=== PATIENT | male | born 1995 | race Caucasian/White ===

== ENCOUNTER 2016-10-16 17:46 | Emergency (ER) | payer SELFPAY ==
[~2016-10-16] VITALS: Ht 170.2 cm; Wt 65.0 kg
[~2016-10-16 17:46] MED LIST: Z.0.NO CURRENT MEDS
[2016-10-16 17:48] VITALS: BP 131/83; PULSE 108; RESP 15; TEMP 97.8; O2SAT 99
[2016-10-16] MEDS ORDERED: ACETAMINOPHEN/HYDROcodone 325 MG/5 MG TAB PO ONE (19:15)
[2016-10-16] MEDS ORDERED: IBUP800T23 PO (19:17)
[2016-10-16] MEDS ORDERED: HYDR-3533 PO (19:17)
--- NOTE | 2016-10-16 19:22 | PD ---
HPI Chief Complaint: Injury Time Seen by Provider: 19:17 Travel History International Travel<30 days: No Contact w/Intl Traveler<30days: No Traveled to known affect area: No History of Present Illness HPI 21-year-old white male presents to emergency department with a complaint of left knee pain after injury last evening. He states that his left knee gave out causing him to fall down injuring his knee. He states that he does not recall striking it. He states that he had gradual swelling and pain. Decreased ability to bear weight. He states pain is moderate to severe. Worse with attempting to weight-bear or move his leg. He denies any other injuries. No injury to his head, neck or back. No numbness, tingling or weakness. There is some relief with elevation and rest. PFSH Past Medical History Medical History: Denies Significant Hx Diminished Hearing: No Immunizations Current: Yes Tetanus Vaccination: < 5 Years Influenza Vaccination: No Past Surgical History Surgical History: No Previous Surgery Social History Alcohol Use: Yes (4 daily ) Tobacco Use: No (1/2 ppd ) Substance Use: Yes ([facility] ) Allergies-Medications (Allergen,Severity, Reaction): Coded Allergies: No Known Allergies (Verified , 10/16/16) Reported Meds & Prescriptions Reported Meds & Active Scripts Active No Active Prescriptions or Reported Medications Review of Systems Except as stated in HPI: all other systems reviewed are Neg Physical Exam Narrative GENERAL: Well-developed, well-nourished in no apparent distress. Nontoxic appearing. HEAD: Normocephalic, atraumatic. EYES: Pupils equal round and reactive. Extraocular motions intact. No scleral icterus. No injection or drainage. ENT: Nose clear. Throat without erythema, tonsillar hypertrophy or exudate. Uvula midline. Airway patent. NECK: Trachea midline. Supple, nontender, moves head freely. No central bony tenderness or spasm. CARDIOVASCULAR: Regular rate and rhythm without murmurs, gallops, or rubs. RESPIRATORY: Clear to auscultation. Breath sounds equal bilaterally. No wheezes , rales, or rhonchi. GASTROINTESTINAL: Abdomen soft, non-tender, nondistended. No hepato-splenomegaly , or palpable masses. No guarding. EXTREMITIES: No clubbing, cyanosis, examination of the left lower extremity reveals a joint effusion in the knee. He has tenderness to the medial component as well as laxity of the medial collateral ligament. Negative anterior posterior draw. No lateral collateral ligament instability or pain. The skin is intact. No erythema or warmth. No pain in the hip, ankle or foot. He has intact sensation with good distal pulses. The right leg and upper extremities are unremarkable BACK: Nontender without deformity. No flank tenderness. NEUROLOGICAL: Awake, alert and oriented x 3 .Cranial nerves grossly intact. Motor and sensory grossly within normal limits. Normal speech. Data Data Last Documented VS Vital Signs Date Time Temp Pulse Resp B/P Pulse Ox O2 Delivery O2 Flow Rate FiO2 10/16/16 17:48 97.8 108 15 131/83 99 Orders Knee, Complete (4vws) (10/16/16 18:04) Ice/Cold Pack (10/16/16 19:12) Splint Or Brace Apply/Monitor (10/16/16 19:12) Crutches (10/16/16 19:12) Acetamin-Hydrocod 325-5 Mg ([place] 5-325 (10/16/16 19:15) Mandatory Outpatient Referral (10/16/16 19:12) MDM Medical Decision Making Medical Screen Exam Complete: Yes Emergency Medical Condition: Yes Medical Record Reviewed: Yes Interpretation(s) Left knee: Positive joint effusion with avulsion fracture consistent with medial collateral ligament injury Differential Diagnosis MDM: High Differential diagnoses: Fracture, sprain, strain, dislocation, contusion, neurovascular injury Narrative Course Patient's given Lortab 5, ice pack, and knee immobilizer and crutches. This is left knee MCL injury with avulsion fracture Diagnosis Primary Impression: acute left knee MCL tear with avulsion fracture Patient Instructions: General Instructions, Narcotic given in the ED Departure Forms: Tests/Procedures, Work Release Special Instructions: No work 3 days. Additional Instructions: Rest. Elevation. Ice packs for the next 3 days. CKS and crutches. No weight-bearing. Follow-up with patient assistance. Medications as directed Follow-up with an orthopedist or your doctor in one week. Return to the ER if any problems Med/Other Pt SpecificInfo: Prescription(s) given Scripts Ibuprofen 800 Mg Hgw666 Mg PO Q8H PRN (Pain/Inflammation) #30 TAB Prov:Alisa Guillen MD 10/16/16 Hydrocodone-Acetaminophen (Lortab)5-325 Mg Tab1 Tab PO Q4H PRN (PAIN) #20 TAB Prov:Alisa Guillen MD 10/16/16 Disposition: 01 DISCHARGE HOME Condition: Stable Noé Díaz Oct 16, 2016 19:21
--- NOTE | 2016-10-16 19:27 | RADRPT ---
EXAM DATE/TIME: 10/16/2016 18:20 [facility] COMPARISON: No previous studies available for comparison. INDICATIONS : Left knee pain after fall. MEDICAL HISTORY : None. SURGICAL HISTORY : None. ENCOUNTER: Initial ACUITY: 1 day PAIN SCORE: 7/10 LOCATION: Left knee. FINDINGS: An avulsion fracture is identified along the medial femoral epicondyle. There is significant adjacent soft tissue swelling. The proximal tibia and fibular are intact. Large joint effusion is noted. CONCLUSION: Medial femoral epicondylar avulsion fracture characteristic of significant medial collateral ligament injury. Large joint effusion Significant internal derangement is suspected. Jasson Connors MD on October 16, 2016 at 19:19 Board Certified Radiologist. This report was verified electronically.
== END 2016-10-16 19:35 | disposition home or self-care (01) ==
LOC: NEPB 17:46
DX: S72.432A Displaced fracture of medial condyle of left femur, initial encounter for closed fracture (principal); S83.412A Sprain of medial collateral ligament of left knee, initial encounter; M25.462 Effusion, left knee; W19.XXXA Unspecified fall, initial encounter
CPT/HCPCS: 73564; 99283; E0113; L1830